=== PATIENT | female | born 1995 | race Caucasian/White ===

== ENCOUNTER 2017-06-22 01:06 | Emergency (ER) | payer BC ==
[~2017-06-22] VITALS: Ht 172.7 cm; Wt 81.6 kg
[~2017-06-22 01:06] MED LIST: HYDR1TAB PO; KETO-22 PO; ONDA-42 PO; cold med
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
[2017-06-22] MEDS ORDERED: AMOX-358 PO (02:42)
[2017-06-22] MEDS ORDERED: METH4TAB PO (02:42)
[2017-06-22] MEDS ORDERED: AUGMENTIN 875 MG TAB (AMOXICILLIN/CLAVULANATE) PO SCH (02:45)
[2017-06-22 03:01] VITALS: BP 129/80
== END 2017-06-22 03:01 | disposition home or self-care (01) ==
LOC: EDUNIT# 01:06 → ER 01:09
DX: J02.9 Acute pharyngitis, unspecified (principal); Z87.81 Personal history of (healed) traumatic fracture; Z98.890 Other specified postprocedural states; Z87.820 Personal history of traumatic brain injury
CPT/HCPCS: 87430; 99283

== ENCOUNTER 2018-07-01 19:44 | Outpatient (CLI) | payer BC ==
[~2018-07-01] VITALS: Ht 172.7 cm; Wt 104.0 kg
[~2018-07-01 19:44] MED LIST changes: +AMOX-358 PO; +METH4TAB PO
--- NOTE | 2018-07-01 19:50 | NUR ---
HALLIE VEGA presented to unit via ambulation from ED, accompanied by family , with c/o VAG BLEEDING. HALLIE VEGA weighed, gowned, voided, and to bed. EFHM and TOCO applied, VS taken. HALLIE VEGA oriented to bed controls, call light, TV, heat, and A/C controls.
--- NOTE | 2018-07-01 20:05 | NUR ---
Dr. Hooper notified of pt arrival, complaints of vaginal bleeding and admits to sex this AM. Pt. denies any cramping associated with bleeding or complications. FHR 158 via Doppler. Orders received for SVE and to report back results.
--- NOTE | 2018-07-01 20:08 | NUR ---
SVE per Capo Hdez RN. cervix was closed. Moderate amount of dark red blood noted on glove after SVE.
--- NOTE | 2018-07-01 20:10 | NUR ---
Dr. Hooper notified of SVE and blood on glove. Orders received for wet prep and to report results.
[2018-07-01 20:15] VITALS: BP 141/78
--- NOTE | 2018-07-01 20:38 | NUR ---
Dr. Hooper notified of wet prep results. Orders received to discharge but instruct pt to monitor bleeding throughout the night and to call office if still bleeding by AM.
[2018-07-01] MEDS ORDERED: PREN-53 PO (20:42)
--- NOTE | 2018-07-01 20:45 | NUR ---
FHR 155 via Doppler.
--- NOTE | 2018-07-01 20:46 | NUR ---
Discharge packet given and explained per Marcus raymundo.
--- NOTE | 2018-07-01 20:59 | NUR ---
Pt. ambulated off unit accompanied by family. No S/S of distress noted. Pt. encouraged to call Dr office tomorrow if bleeding had not stopped by morning. No questions or concerns voiced at time of discharge. All personal belongings in their possession.
== END 2018-07-01 20:59 | disposition home or self-care (01) ==
LOC: WSo 19:44 → LDRP 19:45 → WSo 20:59
PROVIDERS: ATTEND Obstetrics & Gynecology
DX: O46.90 Antepartum hemorrhage, unspecified, unspecified trimester (principal); Z3A.20 20 weeks gestation of pregnancy
CPT/HCPCS: 87210; 99214

== ENCOUNTER 2018-08-21 10:41 | Outpatient (CLI) | payer BC ==
[~2018-08-21 10:41] MED LIST changes: +PREN-53 PO
--- NOTE | 2018-08-21 10:48 | NUR ---
Patient arrived to [facility] via ambulation from registration. Patient to Waiting Room while awaiting Rhogam from the lab to be ready.
--- NOTE | 2018-08-21 11:13 | NUR ---
Rhogam administered, see intervention.
--- NOTE | 2018-08-21 11:15 | NUR ---
Patient discharged at this time and ambulated from the unit with no signs or symptoms of distress noted.
== END 2018-08-21 11:15 | disposition home or self-care (01) ==
LOC: WSo 10:41
PROVIDERS: ATTEND Obstetrics & Gynecology
DX: Z31.82 Encounter for Rh incompatibility status (principal)
CPT/HCPCS: 96372

== ENCOUNTER → 2018-10-05 | Outpatient (CLI) | payer BC ==
[2018-10-05 12:19] LABS: URINE CREATININE FOR RATIO 10 MG/DL (30-125); URINE PROTEIN FOR RATIO ONLY < 6 MG/DL (6-12)
== END ==
LOC: LABNPT 11:58
PROVIDERS: ATTEND Obstetrics & Gynecology
DX: O14.03 Mild to moderate pre-eclampsia, third trimester (principal); Z3A.00 Weeks of gestation of pregnancy not specified
CPT/HCPCS: 82570; 84156

== ENCOUNTER 2018-10-15 19:25 | Outpatient (CLI) | payer BC ==
[~2018-10-15] VITALS: Ht 172.7 cm; Wt 118.1 kg
--- NOTE | 2018-10-15 19:20 | NUR ---
HALLIE VEGA presented to unit via ambulation from home, accompanied by SO, with c/o CONTRACTIONS. HALLIE VEGA weighed, gowned, voided, and to bed. EFHM and TOCO applied, VS taken. HALLIE VEGA oriented to bed controls, call light, TV, heat, and A/C controls.
[2018-10-15 20:00] VITALS: BP 135/68
--- NOTE | 2018-10-15 20:55 | NUR ---
Discharge packet given and explained, understanding voiced by pt, denies needs or concerns, ambulatory off unit accompanied by s/o no ss distress.
== END 2018-10-15 20:55 | disposition home or self-care (01) ==
LOC: WSo 19:25 → LDRP 19:25 → WSo 20:55
PROVIDERS: ATTEND Obstetrics & Gynecology
DX: O62.9 Abnormality of forces of labor, unspecified (principal); Z3A.36 36 weeks gestation of pregnancy
CPT/HCPCS: 99214

== ENCOUNTER 2018-10-27 19:35 | Outpatient (CLI) | payer BC ==
[~2018-10-27] VITALS: Ht 172.7 cm; Wt 119.7 kg
--- NOTE | 2018-10-27 19:40 | NUR ---
HALLIE VEGA presented to unit via ambulation from home/ED, accompanied by SO & FAMILY, with c/o VAG PRESSURE. HALLIE VEGA weighed, gowned, voided, and to bed. EFHM and TOCO applied, VS taken. HALLIE VEGA oriented to bed controls, call light, TV, heat, and A/C controls.
[2018-10-27 19:50] VITALS: BP 194/82
[2018-10-27 19:55] VITALS: BP 130/62
--- NOTE | 2018-10-27 20:18 | NUR ---
D/C instructions given & explained per Dinorah Rivera RN & instructed pt. to call office in am, pt. verbalized understanding & signed, copy of D/C instructions to pt. Pt. left WS ambulatory escorted by SO & family, to home via private vehicle.
--- NOTE | 2018-10-28 08:27 | Physician Query-Final Dx ---
TENNILLE REED 10/28/18 0827: Clinic Account Progress/Dx Physician Query: Please give diagnosis Please add gestation weeks Date of Service Oct 27, 2018 at 19:35 TIFFANIE LANDERS MD 10/28/18 1111: Clinic Account Progress/Dx DIAGNOSIS: Diagnosis 37 weeks gestation with false labor TENNILLE REED Oct 28, 2018 08:27 TIFFANIE LANDERS MD Oct 28, 2018 11:11
== END 2018-10-27 20:18 | disposition home or self-care (01) ==
LOC: LDRP 19:35 → WSo 19:35
PROVIDERS: ATTEND Obstetrics & Gynecology
DX: O47.9 False labor, unspecified (principal); Z3A.37 37 weeks gestation of pregnancy
CPT/HCPCS: 99212

== ENCOUNTER 2018-10-30 15:51 | Outpatient (CLI) | payer BC ==
[2018-10-30] VITALS (8 sets, daily range): BP systolic 129–172; BP diastolic 65–89
[~2018-10-30] VITALS: Ht 172.7 cm; Wt 120.2 kg
--- NOTE | 2018-10-30 15:51 | NUR ---
HALLIE VEGA presented to unit via AMB from ED, accompanied by SPOUSE, with c/o POSS LEAKING FLUID. HALLIE VEGA weighed, gowned, voided, and to bed. 160 EF and TOCO applied, VS taken. HALLIE VEGA oriented to bed controls, call light, TV, heat, and A/C controls.
--- NOTE | 2018-10-30 16:00 | NUR ---
PT WAS AT THE [employer] [facility] AND FELT LIKE SHE WAS LEAKING FLUID.
--- NOTE | 2018-10-30 16:14 | NUR ---
AMNIO SWAB PERFORMED. NEGATIVE. NO SIGN OF FLUID. APPEARS TO HAVE A YEAST INFECTION. STATES IS CURRENTLY BEING TREATED FOR YEAST.
--- NOTE | 2018-10-30 16:16 | NUR ---
SVE BY MARIANA JOHNSON. CERVIX CLOSED/THICK, ANTERIOR.
--- NOTE | 2018-10-30 16:24 | NUR ---
DR. LANDERS NOTIFIED OF PT'S ARRIVAL, COMPLAINT, NEGATIVE AMNIO SWAB, REACTIVE NST, AND UTERINE IRRITABILITY WITH OCC CTX. ORDERS RECEIVED.
--- NOTE | 2018-10-30 16:32 | NUR ---
SLIDE FOR FERN OBTAINED AND TO LAB WITH NEGATIVE RESULTS.
[2018-10-30 16:55] LABS: BILIRUBIN,URINE NEGATIVE (NEGATIVE); CLARITY,URINE CLEAR; COLOR,URINE YELLOW; GLUCOSE, URINE (UA) NEGATIVE (NEGATIVE); KETONES,URINE NEGATIVE (NEGATIVE); LEUKOCYTE ESTERASE ,URINE 2+ (NEGATIVE); NITRITE,URINE NEGATIVE (NEGATIVE); PH,URINE 6.5 (5-9); PROTEIN,URINE 1+ (NEGATIVE); UROBILINOGEN,URINE NORMAL (NORMAL)
[2018-10-30 16:56] LABS: BACTERIA,URINE MODERATE /HPF
[2018-10-30 16:57] LABS: AMORPHOUS SEDIMENT,UR MOD AMOR URATES /LPF
--- NOTE | 2018-10-30 17:08 | NUR ---
DR. LANDERS NOTIFIED OF NEGATIVE FERN TEST, U. A. RESULTS, AND PRO/CREST RATIO OF 0.14. ORDERS TO DISMISS WITH PRECAUTIONS.
--- NOTE | 2018-10-30 17:11 | NUR ---
EFM OFF. UP TO GET DRESSED.
--- NOTE | 2018-10-30 17:25 | NUR ---
DISCHARGE INSTRUCTIONS REVIEWED WITH COPY TO PT. STATES UNDERSTANDING OF ALL INSTRUCTIONS AND NEED TO F/U SCHEDULED ON THURSDAY AND NEEDED. DISMISSED AMB ACC BY SPOUSE AND PARENTS.
--- NOTE | 2018-11-01 09:31 | Physician Query-Final Dx ---
VALENTINA WALLS 11/01/18 0930: Clinic Account Progress/Dx Physician Query: Please give diagnosis Need diagnosis and weeks of gestation Date of Service Oct 30, 2018 at 15:51 TIFFANIE LANDERS MD 11/01/18 1353: Clinic Account Progress/Dx DIAGNOSIS: Diagnosis FAlse labor at 37+ weeks gestation VALENTINA WALLS Nov 01, 2018 09:30 TIFFANIE LANDERS MD Nov 01, 2018 13:53
[2018-11-02] MEDS ORDERED: DOCU100C37 PO (07:51)
[2018-11-02] MEDS ORDERED: IBUP-1780 PO (07:51)
[2018-11-02] MEDS ORDERED: OXYC1TAB12 PO (07:51)
== END 2018-10-30 17:25 | disposition home or self-care (01) ==
LOC: WSo 15:51 → LDRP 15:52 → WSo 17:25
PROVIDERS: ATTEND Obstetrics & Gynecology
DX: O47.1 False labor at or after 37 completed weeks of gestation (principal); Z3A.37 37 weeks gestation of pregnancy
CPT/HCPCS: 36415; 81000; 82570; 84156; 87088; 89060; 99214

== ENCOUNTER 2018-11-01 12:31 | Inpatient (IN) | payer BC ==
[2018-11-01] VITALS (7 sets, daily range): BP systolic 116–140; BP diastolic 47–115
[~2018-11-01] VITALS: Ht 172.7 cm; Wt 118.6 kg
--- NOTE | 2018-11-01 12:25 | NUR ---
HALLIE VEGA presented to unit from HOME, accompanied by family, with c/o . HALLIE VEGA weighed, gowned, voided, and to bed. EFHM and TOCO applied, VS taken. HALLIE VEGA oriented to bed controls, call light, TV, heat, and A/C controls.
[2018-11-01] MEDS ORDERED: LACTATED RINGERS 1,000 ML IV ONE ×2 (12:47→12:56)
[2018-11-01] MEDS: LACTATED RINGERS 1,000 ML IV PRN ×4 (12:55→18:45)
[2018-11-01] MEDS ORDERED: METOCLOPRAMIDE INJ 10 MG/2 ML (REGLAN) ONE (12:56)
[2018-11-01] MEDS ORDERED: CITRIC ACID/SOB CIT (BICITRA) 30 ML UDC ONE (12:56)
[2018-11-01] MEDS ORDERED: FAMOTIDINE 20MG/2ML IV (PEPCID) ONE (12:56)
[2018-11-01] MEDS ORDERED: ceFAZolin 2 GM/50 ML NS 50 ML ONE (12:56)
[2018-11-01] MEDS ORDERED: metroNIDAZOLE 500MG/100ML IVPB 100 ML ONE (12:56)
[2018-11-01 12:58] LABS: BASOPHILS # (AUTO) 0.1 10^3/uL (0.0-0.1); BASOPHILS % (AUTO) 1 % (0-10); EOSINOPHILS # (AUTO) 0.1 10^3/uL (0.0-0.3); EOSINOPHILS % (AUTO) 1 % (0-10); HEMATOCRIT 40 % (35-52); HEMOGLOBIN 12.9 G/DL (11.5-16.0); LYMPHOCYTES # (AUTO) 1.9 X 10^3 (1.0-4.0); LYMPHOCYTES % (AUTO) 18 % (12-44); MEAN CORPUSCULAR HEMOGLOBIN 29 PG (25-34); MEAN CORPUSCULAR HGB CONC 32 G/DL (32-36); MEAN CORPUSCULAR VOLUME 90 FL (80-99); MEAN PLATELET VOLUME 12.6 FL (7.4-10.4); MONOCYTES % (AUTO) 10 % (0-12); NEUTROPHILS # (AUTO) 7.7 X 10^3 (1.8-7.8); NEUTROPHILS % (AUTO) 72 % (42-75); PLATELET COUNT 169 10^3/uL (130-400); RED CELL DISTRIBUTION WIDTH 15.9 % (10.0-14.5); WHITE BLOOD COUNT 10.8 10^3/uL (4.3-11.0)
[2018-11-01] MEDS ORDERED: CATHETER FLUSH 10 ML SYR IV PRN (13:00)
[2018-11-01] MEDS ORDERED: FAMOTIDINE 20MG/2ML IV (PEPCID) IV ONE (13:00)
[2018-11-01] MEDS ORDERED: METOCLOPRAMIDE INJ 10 MG/2 ML (REGLAN) IV ONE (13:00)
[2018-11-01] MEDS ORDERED: CITRIC ACID/SOB CIT (BICITRA) 30 ML UDC PO ONE (13:00)
[2018-11-01] MEDS ORDERED: ONDANSETRON 4 MG/2 ML (SDV) Z0FRAN ONE (13:22)
[2018-11-01] MEDS ORDERED: KETOROLAC 30 MG/ML VIAL ONE (13:22)
[2018-11-01] MEDS ORDERED: fentaNYL INJECTION 100 MCG/2 ML AMP ONE ×2 (13:23→17:31)
[2018-11-01] MEDS ORDERED: OXYTOCIN/NORMAL SALINE 0 ML IV ONE (13:24)
[2018-11-01] MEDS ORDERED: ceFAZolin 2 GM/50 ML NS 50 ML IV NR ×2 (13:30→18:00)
[2018-11-01] MEDS ORDERED: metroNIDAZOLE 500MG/100ML IVPB 100 ML IV ONE ×2 (13:30→18:00)
--- NOTE | 2018-11-01 13:39 | NUR ---
Dr. Hooper here to see patient. Plan of care reviewed. Patient verbalizes understanding and questions answered.
--- NOTE | 2018-11-01 13:47 | History & Physical ---
History and Physical Date Seen by Provider: Nov 01, 2018 Time Seen by Provider: 13:42 This patient is a 23-year-old G1 white female at 37-6/7 weeks' gestation sent from my clinic with an GENEVIEVE of 35 with a history suspicious for spontaneous rupture membranes but with negative testing for that today. She denies bleeding but does report persistent vaginal discharge. She has occasional contractions she is known to be breech and as confirmed on ultrasound again on this date GBS culture was positive after 35 weeks gestation Allergies are none Medications are vitamins Medical social and surgical histories are per the antepartum record HEENT exam is normal Neck is supple no lymphadenopathy no thyromegaly Abdomen is gravid soft nontender nondistended Extremities show no clubbing cyanosis. There is no Homans sign. Pelvic exam shows a cervix is thick and closed with the presenting part to high to palpate. Ultrasound demonstrates an GENEVIEVE of 35 and a breech presentation with double footling /complete breech Assessment and plan term at 37-6/7 weeks' gestation with breech presentation and a markedly decreased GENEVIEVE in a patient with history suspicious for P PROM but with negative testing thus far plan is to proceed with delivery secondary to breech presentation with a markedly low GENEVIEVE. Surgical risk complication recovering follow-up have been discussed. Patient understands and accepts the risks and is ready to proceed 37-6/7 weeks' gestation with breech presentation and severe oligohydramnios Allergies and Home Medications Allergies Coded Allergies: No Known Drug Allergies (Unverified , 02/21/11) Home Medications Pyd539/Iron Fumarate/FA/Dss 1 Each Tablet, 1 EACH PO DAILY, (Reported) Patient Home Medication List Home Medication List Reviewed: Yes TIFFANIE LANDERS MD Nov 01, 2018 13:46
[2018-11-01] MEDS ORDERED: OXYTOCIN/NORMAL SALINE 1,000 ML IV ONE (17:32)
[2018-11-01] MEDS ORDERED: BUPIVACAINE 0.5% 30 ML (SENSORCAINE) VIAL ONE (19:24)
[2018-11-01] MEDS ORDERED: D5 LR IV SOLUTION 1,000 ML IV SCH (20:05)
[2018-11-01] MEDS ORDERED: ONDANSETRON 4 MG/2 ML (SDV) Z0FRAN IVP PRN (20:15)
[2018-11-01] MEDS ORDERED: MEASLES,MUMPS,RUBELLA 1 EA INJ SC ONE (20:15)
[2018-11-01] MEDS ORDERED: TETANUS,DIPTH,PERTUSS P/F (BOOSTRIX) 0.5 ML VIAL IM ONE (20:15)
--- NOTE | 2018-11-01 20:20 | NUR ---
Pt oriented to new room. papers discussed. continuing to show hunger signs. infant handed back to pt to breastfeed. Food at bedside. Fresh ice water given. Discussed POC, pt verbalized understanding. Pt denies needing anything further at time.
[2018-11-01] MEDS: DOCUSATE SODIUM 100 MG (COLACE) CAP PO SCH (20:40)
[2018-11-01] MEDS: KETOROLAC 30 MG/ML VIAL IVP PRN (20:40)
[2018-11-01] MEDS ORDERED: DOCUSATE SODIUM 100 MG (COLACE) CAP PO SCH (21:00)
--- NOTE | 2018-11-01 21:00 | NUR ---
Pt continuing to breastfeed. Answered questions regarding care. No concerns voiced.
--- NOTE | 2018-11-01 21:30 | NUR ---
Infant swaddled per this RN per pt's request. Visitors arriving in patient's room at time. Pt denies any concerns at time
[2018-11-01] MEDS: OXYTOCIN/NORMAL SALINE 500 ML IV SCH (21:44)
--- NOTE | 2018-11-01 21:59 | OPERATIVE REPORT ---
DATE OF SERVICE: 11/01/2018 PREOPERATIVE DIAGNOSIS: A 37 and 6/7 weeks' gestation with severe oligohydramnios and breech presentation. POSTOPERATIVE DIAGNOSIS: A 37 and 6/7 weeks' gestation with severe oligohydramnios and breech presentation. OPERATIVE PROCEDURE: Primary low transverse delivery of a viable male infant with Apgars of 7 and 9 at 1 and 5 minutes respectively, weight of 7 pounds and a time of 1839 and cord blood gas that is pending. OPERATIVE DESCRIPTION: With the patient in the supine position under satisfactory spinal analgesia, she was prepped and draped in the usual fashion for abdominal surgery. Harrell catheter was placed in the urinary bladder. A repeat Pfannenstiel incision was made through the skin with scalpel, the patient's abdomen was entered in the usual manner. Bladder retractor placed into position and a clean scalpel was used to make a 4 cm hysterotomy incision transversely across the lower uterine segment that was extended by blunt dissection as well. A viable male infant was delivered via the uterine incision from a kaila breech position. The was bulb suctioned after completion of delivery, the umbilical cord doubly clamped and cut and the passed to the pediatric nurse in attendance for delivery. Cord bloods were obtained. The placenta was delivered spontaneously Crespo. It was normal with a 3-vessel cord. The uterus was exteriorized. The interior was wiped clean with a wet laparotomy sponge. Uterine incision closed with a running locked suture of 2-0 Vicryl. Hemostasis was complete. The uterus was returned to the abdominal cavity. All blood clot and debris was removed from the abdominal cavity. With sponge, needle counts correct and hemostasis assured, the anterior parietal peritoneum was closed with running suture of 2-0 Vicryl. Rectus muscles were closed with that suture as well. The rectus fascia was closed with 2-0 Vicryl, subcutaneous tissue with 2-0 Vicryl and the skin was stapled. Sponge and needle counts were correct on completion of the procedure. Estimated blood loss was around 450 mL. The patient tolerated the procedure well and was transferred to recovery room in stable condition. The remained with the mom. Job ID: [id number] DocumentID: [id number] Dictated Date: 11/01/2018 18:59:07 Airway Traffic Controller Date: 11/01/2018 21:58:20 Dictated By: TIFFANIE LANDERS MD [facility]ITALAshley
--- NOTE | 2018-11-01 22:25 | NUR ---
Pt up to bathroom with standby assistance from this RN. Pt steady on feet. Demonstrated pericare to pt. Bed made.
--- NOTE | 2018-11-01 22:36 | NUR ---
Pt unable to void. Assisted back to bed. Pt denies needing anything further at time.
--- NOTE | 2018-11-01 22:45 | NUR ---
Assisted pt with .
--- NOTE | 2018-11-01 23:18 | NUR ---
Demonstrated to pt and s.o. how to swaddle. Pt states breastfed well. Now planning to rest. Will call if needing anything.
[2018-11-02 01:00] VITALS: BP 116/61
[2018-11-02] MEDS: oxyCODONE/APAP 10/325MG (PERCOCET 10) TABLET PO PRN ×4 (01:23→20:06)
[2018-11-02] MEDS: OXYTOCIN/NORMAL SALINE 500 ML IV SCH (01:33)
[2018-11-02] MEDS: KETOROLAC 30 MG/ML VIAL IVP PRN ×2 (04:20→10:30)
[2018-11-02 05:00] VITALS: BP 116/64
--- NOTE | 2018-11-02 07:49 | Progress Note ---
Standard Progress Note Progress Notes/Assess & Plan Date Seen by a Provider: Nov 02, 2018 Time Seen by a Provider: 07:48 Progress/Assessment & Plan This patient is without complaint. She is ambulating, voiding, tolerating oral intake well has good pain control. Vital Signs 11/02/18 05:00 Temp 98.3 Pulse 97 Resp 18 B/P (MAP) 116/64 (81) Pulse Ox 97 O2 Delivery Room Air Vital signs are stable. Patient is afebrile. The abdomen is benign. The surgical incision is clean dry and intact. Fundus is firm below the umbilicus and nontender. Extremities show no clubbing cyanosis. There is no Homans sign. There is some pretibial pitting edema that is normal. Assessment and plan postoperative day number 1 status post primary delivery due to breech presentation at 37-6/7 weeks' gestation with severe oligo. Patient is doing well. Plan is for routine convalescence care TIFFANIE LANDERS MD Nov 02, 2018 07:49
[2018-11-02] MEDS ORDERED: OXYC1TAB12 PO (07:51)
[2018-11-02] MEDS ORDERED: DOCU100C37 PO (07:51)
[2018-11-02] MEDS ORDERED: IBUP-1780 PO (07:51)
--- NOTE | 2018-11-02 07:52 | Discharge Instructions ---
Discharge Instructions Discharge Medications New, Converted or Re-Newed RX: RX on Chart Patient Instructions Patient Instructions: As director Return to The Hospital For: As directed Activity & Diet Discharge Diet: No Restrictions Activity as Tolerated: No Orders-Post D/C & Referrals Follow Up Appt: RTC 1 week for incision check. Call to make follow up appt. for patient in 4 weeks. Wound Care: Remove francoise, apply benzoin and steri strips. Activity Per routine post instructions. Please call in RX to patient pharmacy. Diet as tolerated Patient may shower or tub bathe as desired. Continue home meds TIFFANIE LANDERS MD Nov 02, 2018 07:52
[2018-11-02] MEDS: DOCUSATE SODIUM 100 MG (COLACE) CAP PO SCH ×2 (10:30→21:08)
[2018-11-02 10:46] VITALS: BP 130/55
--- NOTE | 2018-11-02 11:10 | NUR ---
dr weinstein notified of patient temperature, pulse, BP, and reviewed yesterdays lab work. new orders received.
[2018-11-02 11:46] LABS: BASOPHILS % (AUTO) 0 % (0-10); EOSINOPHILS % (AUTO) 0 % (0-10); HEMATOCRIT 35 % (35-52); HEMOGLOBIN 11.3 G/DL (11.5-16.0); LYMPHOCYTES # (AUTO) 1.6 X 10^3 (1.0-4.0); LYMPHOCYTES % (AUTO) 14 % (12-44); MEAN CORPUSCULAR HEMOGLOBIN 30 PG (25-34); MEAN CORPUSCULAR HGB CONC 32 G/DL (32-36); MEAN CORPUSCULAR VOLUME 92 FL (80-99); MEAN PLATELET VOLUME 12.5 FL (7.4-10.4); MONOCYTES # (AUTO) 1.1 X 10^3 (0.0-1.0); MONOCYTES % (AUTO) 9 % (0-12); NEUTROPHILS # (AUTO) 8.6 X 10^3 (1.8-7.8); NEUTROPHILS % (AUTO) 76 % (42-75); PLATELET COUNT 122 10^3/uL (130-400); RED CELL DISTRIBUTION WIDTH 15.9 % (10.0-14.5); WHITE BLOOD COUNT 11.3 10^3/uL (4.3-11.0)
--- NOTE | 2018-11-02 12:40 | NUR ---
sitting in chair when RN arrived to bedside, smiling talking with staff and family. no s/s of distress noted. IV removed. reviewed lab results with patient. temp 99.5. denies need or concerns. will continue to monitor.
--- NOTE | 2018-11-02 15:29 | NUR ---
Initial visit with Talia, her mother, brother, sister in law and niece. Offered blessing and congratulations.
[2018-11-02 15:30] VITALS: BP 122/66
[2018-11-02] MEDS ORDERED: IBUPROFEN 800 MG (MOTRIN) TAB PO ONE ×2 (16:57→23:39)
[2018-11-02 21:08] VITALS: BP 130/71
[2018-11-03 02:55] VITALS: BP 130/71
[2018-11-03] MEDS ORDERED: IBUPROFEN 800 MG (MOTRIN) TAB PO ONE ×2 (05:52→13:56)
--- NOTE | 2018-11-03 07:45 | NUR ---
Dr. Hooper to bedside to see pt. Orders for discharge rec'd.
--- NOTE | 2018-11-03 07:50 | Progress Note ---
Standard Progress Note Progress Notes/Assess & Plan Date Seen by a Provider: Nov 03, 2018 Time Seen by a Provider: 07:49 Progress/Assessment & Plan This patient is without complaint. She is ambulating, voiding, tolerating oral intake well has good pain control. Vital Signs 11/02/18 05:00 Temp 98.3 Pulse 97 Resp 18 B/P (MAP) 116/64 (81) Pulse Ox 97 O2 Delivery Room Air Vital signs are stable. Patient is afebrile. The abdomen is benign. The surgical incision is clean dry and intact. Fundus is firm below the umbilicus and nontender. Extremities show no clubbing cyanosis. There is no Homans sign. There is some pretibial pitting edema that is normal. Assessment and plan postoperative day number 1 status post primary delivery due to breech presentation at 37-6/7 weeks' gestation with severe oligo. Patient is doing well. Plan is for routine convalescence care November 04, 1999 915 Patient is without complaint. She is ambulating, voiding, tolerating oral intake well has good pain control. Patient is requesting discharge home Vital Signs 11/03/18 02:55 Temp 97.6 Pulse 93 Resp 18 B/P (MAP) 130/71 (90) Pulse Ox 97 O2 Delivery Room Air Vital signs are stable. Patient is afebrile The abdomen is benign. The surgical incision is clean dry and intact. Fundus is firm below the umbilicus and nontender. Extremities show no clubbing cyanosis. There is no Homans sign. There is some pretibial pitting edema that is normal. Assessment and plan postoperative day number 2 status post primary delivery doing well. Plan is for discharge home with follow-up in clinic Final Diagnosis Term primary delivery TIFFANIE LANDERS MD Nov 03, 2018 07:50
[2018-11-03] MEDS: DOCUSATE SODIUM 100 MG (COLACE) CAP PO SCH (08:47)
[2018-11-03 08:51] VITALS: BP 127/64
[2018-11-03] MEDS ORDERED: MEASLES,MUMPS,RUBELLA 1 EA INJ ONE (13:56)
[2018-11-03] MEDS: oxyCODONE/APAP 10/325MG (PERCOCET 10) TABLET PO PRN (14:08)
--- NOTE | 2018-11-03 14:35 | NUR ---
MMR GIVEN. KARELY REMOVED AND STERI STRIPS APPLIED. PT TOLERATES PROCEDURE WELL. EDGES OF INCISION WELL APPROXIMATED, NO ACTIVE BLEEDING NOTED. DISCHARGE INSTRUCTIONS EXPLAINED WITH COPY PROVIDED. NARCOTIC SCRIPT GIVEN. PT NOTIFIED OF OTHER SCRIPTS CALLED TO [facility]. PT VERBALIZES UNDERSTANDING OF INSTRUCTIONS, SIGNS TO VERIFY. DENIES NEEDS OR CONCERNS AT THIS TIME. ENCOURAGED PT TO CALL WHEN READY FOR DISMISSAL.
--- NOTE | 2018-11-03 15:45 | NUR ---
PT AMBULATES OFF UNIT ACCOMPANIED BY OB STAFF, INFANT, AND MOB TO PRIVATE VEHICLE WITH ALL PERSONAL BELONGINGS. NO S/S OF DISTRESS NOTED.
[2018-11-07] MEDS ORDERED: IBUPROFEN 800 MG (MOTRIN) TAB PO SCH
== END 2018-11-03 15:45 | disposition home or self-care (01) | DRG 787 ==
LOC: LDRP 12:31
PROVIDERS: ADMIT Obstetrics & Gynecology; ATTEND Obstetrics & Gynecology
PROC: 10D00Z1 Extraction of Products of Conception, Low, Open Approach (ICD-10-PCS; principal; 2018-11-01 17:47)
DX: O32.1XX0 Maternal care for breech presentation, not applicable or unspecified (principal); O41.03X0 Oligohydramnios, third trimester, not applicable or unspecified; O99.824 Streptococcus B carrier state complicating childbirth; Z3A.37 37 weeks gestation of pregnancy; Z37.0 Single live birth; Z23 Encounter for immunization
CPT/HCPCS: 36415; 85025; 86850; 86900; 86901; 90707; 94664